=== PATIENT | male | born 1960 | race Caucasian/White ===

== ENCOUNTER → 2016-09-22 | Outpatient (CLI) | payer BC ==
[~2016-09-22] MED LIST: HMLI SC; INSDGI SC; LSN20 PO; SIMV40TA2 PO
== END | disposition home or self-care (01) ==
LOC: C.CPL 09:41
PROVIDERS: ATTEND Orthopaedic Surgery
DX: M77.22 Periarthritis, left wrist (principal)

== ENCOUNTER → 2016-10-07 | Outpatient (CLI) | payer BC | END | disposition home or self-care (01) | LOC: C.PATHSPEC 12:08 | PROVIDERS: ATTEND Orthopaedic Surgery | DX: M11.232 Other chondrocalcinosis, left wrist (principal) ==

== ENCOUNTER → 2017-10-05 | Outpatient (CLI) | payer OTHER ==
--- NOTE | 2017-10-05 08:24 | DIAGNOSTIC IMAGING REPORT ---
L HAND MIN 3 VIEWS ROUTINE HISTORY: 56 years-old Male INFLAMMATORY ARTHROPATHY status post prior scaphoid resection. COMPARISON: Left wrist radiographs 12/25/2015 TECHNIQUE: 4 views of the left hand FINDINGS: The bones are mildly demineralized. Moderate radiocarpal joint space narrowing. Moderate degenerative changes are also seen involving the first carpometacarpal joint. Mild to moderate joint space narrowing is seen throughout the interphalangeal joints. There are subtle marginal and periarticular erosions about the digits involving predominantly the PIP joints and to a lesser degree within the DIP and metacarpophalangeal joints. No significant focal soft tissue swelling. Peripheral vascular disease. Postoperative changes compatible with prior scaphoid resection with carpal fusion. Multiple cannulated screws are seen within the proximal and distal carpal rows with sparing of the trapezoid and trapezium. No acute fracture or subluxation. IMPRESSION: 1. Postoperative changes compatible with prior scaphoid resection with carpal fusion. 2. Mild bone demineralization is noted with subtle marginal and periarticular erosions predominantly involving the PIP joints suggesting inflammatory arthropathy. 3. No acute fracture or subluxation. 4. Peripheral vascular disease. The above report was generated using voice recognition software. It may contain grammatical, syntax or spelling errors. Electronically signed by: Jorge Up M.D. 10/05/2017 8:22 AM Dictated Date/Time: 10/05/2017 8:18 AM
== END | disposition home or self-care (01) ==
LOC: C.RAD 08:01
DX: M06.4 Inflammatory polyarthropathy (principal); I73.9 Peripheral vascular disease, unspecified

== ENCOUNTER → 2017-12-06 | Day surgery (SDC) | payer BC, OTHER ==
[2017-11-24 15:25] VITALS: Ht 175.3 cm; Wt 103.6 kg
[~2017-12-06] VITALS: Ht 175.3 cm; Wt 103.6 kg
[~2017-12-06] MED LIST changes: +ASPCH81X PO; +ATOR-24 PO; +FOLI1TAB8 PO; -HMLI SC; -INSDGI SC; +INSPMPHMLG; +LIDOCAINE HCL 2% 2 ML VIAL (20MG/ML) ONE; +LISI20TA3 PO; -LSN20 PO; +METH2.5T PO; +MIDAZOLAM HCL 1 MG/ML 2ML VIAL ONE; +ONDANSETRON INJ 2 MG/ML 2 ML VIAL ONE; +PROPOFOL IV EMULSION 10 MG/ML 20 ML VIAL IV ONE; -SIMV40TA2 PO; +SODIUM CHLORIDE 0.9% 500ML 500 ML IV ONE
--- NOTE | 2017-12-06 10:04 | Endo History and Physical ---
History & Physical Date of Service: Dec 06, 2017. Chief Complaint: history of polyps Referring Physician: Dr. Ryan Donahue History of Present Illness 56 yo CM who presents for colonoscopy secondary to history of polyps. Past Medical History Diabetes, Hypertension Past Surgical History Hx Cardiac Surgery: No Hx Internal Defibrillator: No Hx Pacemaker: No Hx Abdominal Surgery: No Hx of Implantable Prosthesis: No Hx Post-Op Nausea and Vomiting: No Hx Cancer Surgery: No Hx Thoracic Surgery: No Hx Orthopedic: Yes (LEFT WRIST FUSION) Hx Urinary Tract Surgery: Yes (LITHOTRIPSY) Family History Colon CA, Polyp Social History Smoking Status: Never Smoker Hx Substance Use: No Hx Alcohol Use: No Allergies Coded Allergies: No Known Allergies (Verified , 12/06/17) Current Medications Reported Home Medications Medications Dose Route/Sig Max Daily Dose Days Date Category Dose Instructions Folvite (Folic Acid) 1 Mg Tab 1 Mg PO QPM 11/24/17 Reported Methotrexate 2.5 Mg Tab 6 Tab PO WK 11/24/17 Reported TAKES ON MONDAYS Aspirin Chewable (Aspirin) 81 Mg Chew 81 Mg PO QPM 11/24/17 Reported Lipitor (Atorvastatin Calcium) 40 Mg Tab 40 Mg PO QPM 11/24/17 Reported Prinivil (Lisinopril) 20 Mg Tab 20 Mg PO QPM 11/24/17 Reported Insulin Humalog Pump (Insulin Human Lispro) Pump 1 Ea N/A UD 11/24/17 Reported Vital Signs Weight (Kilograms): 103.64 Height (Feet): 5 Height (Inches): 9 Date Time Temp Pulse Resp B/P (MAP) Pulse Ox O2 Delivery O2 Flow Rate FiO2 12/06/17 09:29 36.4 87 20 154/72 (99) 97 Room Air Physical Exam General Appearance: WD/WN, no apparent distress Respiratory/Chest: Auscultation: breath sounds normal Cardiovascular: Heart Auscultation: RRR Abdomen: Bowel Sounds: normal Inspection & Palpation: soft, non-distended, no tenderness, guarding & rebound Assessment and Plan Assessment: 56 yo CM who presents for colonoscopy secondary to history of polyps. Plan: Proceed with colonoscopy.
--- NOTE | 2017-12-06 10:52 | Anesthesiology Progress Note ---
Anesthesia Post Op Note Date & Time Dec 06, 2017 at 10:52 Vital Signs Pain Intensity: 0 Vital Signs Past 12 Hours Date Time Temp Pulse Resp B/P (MAP) Pulse Ox O2 Delivery O2 Flow Rate FiO2 12/06/17 10:46 36.4 83 16 117/47 (70) 96 Room Air 12/06/17 09:29 36.4 87 20 154/72 (99) 97 Room Air Notes Mental Status: alert / awake / arousable, participated in evaluation Pt Amnestic to Procedure: Yes Nausea / Vomiting: adequately controlled Pain: adequately controlled Airway Patency, RR, SpO2: stable & adequate BP & HR: stable & adequate Hydration State: stable & adequate Anesthetic Complications: no major complications apparent
--- NOTE | 2017-12-06 10:56 | GI REPORT ---
Procedure Date: 12/06/2017 10:07 AM Procedure: Colonoscopy Indications: High risk colon cancer surveillance: Personal history of colonic polyps Medicines: Monitored Anesthesia Care Complications: No immediate complications. Estimated Blood Loss: Estimated blood loss: none. Procedure: Pre-Anesthesia Assessment: - Prior to the procedure, a History and Physical was performed, and patient medications and allergies were reviewed. The patient's tolerance of previous anesthesia was also reviewed. The risks and benefits of the procedure and the sedation options and risks were discussed with the patient. All questions were answered, and informed consent was obtained. Prior Anticoagulants: The patient has taken aspirin, last dose was 2 days prior to procedure. ASA Grade Assessment: II - A patient with mild systemic disease. After reviewing the risks and benefits, the patient was deemed in satisfactory condition to undergo the procedure. After I obtained informed consent, the scope was passed under direct vision. Throughout the procedure, the patient's blood pressure, pulse, and oxygen saturations were monitored continuously. The scope was introduced through the anus and advanced to the terminal ileum. The colonoscopy was performed without difficulty. The patient tolerated the procedure well. The quality of the bowel preparation was good. The terminal ileum, ileocecal valve, appendiceal orifice, and rectum were photographed. Findings: The perianal and digital rectal examinations were normal. A 6 mm polyp was found in the ascending colon. The polyp was flat. The polyp was removed with a hot snare. Resection and retrieval were complete. Multiple small-mouthed diverticula were found in the sigmoid colon. Non-bleeding internal hemorrhoids were found during retroflexion. The hemorrhoids were small. Impression: - One 6 mm polyp in the ascending colon, removed with a hot snare. Resected and retrieved. - Diverticulosis in the sigmoid colon. - Non-bleeding internal hemorrhoids. Recommendation: - Resume previous diet. - Continue present medications. - Await pathology results. - Repeat colonoscopy for surveillance based on pathology results. - Return to primary care physician as previously scheduled. Lauri Martinez, DO 12/06/2017 10:56:10 AM This report has been signed electronically. Note Initiated On: 12/06/2017 10:07 AM I attest to the content of the Intraoperative Record and orders documented therein, exceptions below
--- NOTE | 2017-12-06 10:57 | Discharge Instructions ---
Endoscopy Patient Instructions Date / Procedure(s) Performed Dec 06, 2017. Colonoscopy Allergy Information Coded Allergies: No Known Allergies (Verified , 12/06/17) Discharge Date / Findings Dec 06, 2017. Colon polyp Diverticulosis Internal hemorrhoids Medication Instructions Stopped Medication(s): stopped all meds on Monday including ASA OK to resume all medications today as prescribed Reported Home Medications Medications Dose Route/Sig Max Daily Dose Days Date Category Dose Instructions Folvite (Folic Acid) 1 Mg Tab 1 Mg PO QPM 11/24/17 Reported Methotrexate 2.5 Mg Tab 6 Tab PO WK 11/24/17 Reported TAKES ON MONDAYS Aspirin Chewable (Aspirin) 81 Mg Chew 81 Mg PO QPM 11/24/17 Reported Lipitor (Atorvastatin Calcium) 40 Mg Tab 40 Mg PO QPM 11/24/17 Reported Prinivil (Lisinopril) 20 Mg Tab 20 Mg PO QPM 11/24/17 Reported Insulin Humalog Pump (Insulin Human Lispro) Pump 1 Ea N/A UD 11/24/17 Reported Provider Instructions Activity Restrictions - No exercising or heavy lifting for 24 hours. - Do not drink alcohol the day of the procedure. - Do not drive a car or operate machinery until the day after the procedure. - Do not make any important decisions or sign important papers in 24 hours after the procedure. Following Day: - Return to full activity which may include returning to work/school. Diet Start your diet with liquids and light foods (jello, soup, juice, toast). Then eat your usual diet if not nauseated. Treatment For Common After Affects For mild abdominal pain, bloating, or excessive gas: - Rest - Eat lightly - Lie on right side Follow-Up Information Follow-up with Dr. Ryan Donahue as scheduled Anesthesia Information What You Should Know You have had a procedure that required some medicine to reduce anxiety and discomfort. This treatment is called moderate sedation. After receiving the treatment, you may be sleepy, but you will be able to breathe on your own. The effects of the treatment may last for several hours. Follow these instructions along with Activity/Diet recommendations noted above: * Do NOT do anything where dizziness or clumsiness would be dangerous. * Rest quietly at home today, then you can be up and about tomorrow. * Have a responsible person stay with you the rest of today. * You may have had an I.V. today. If so, you may take the dressing off later today. Recommendations Call your doctor if: * Trouble breathing * Continuous vomiting for more than 24 hours * Temperature above 101 degrees * Severe abdominal pain or bloating * Pain not relieved by pain medicine ordered * There is increased drainage or redness from any incision * A large amount of rectal bleeding greater than 2-3 tablespoons. (If you had a polyp/s removed or have hemorrhoids, a small amount of blood - from the rectum is to be expected.) * You have any unanswered questions or concerns. IN THE EVENT OF A SERIOUS EMERGENCY, GO TO THE NEAREST EMERGENCY ROOM Your discharge instructions were prepared by provider Lauri Martinez. Patient Instructions Signature Page Cong Miller Patient (or Guardian) Signature/Date: I have read and understand the instructions given to me by my caregivers. Caregiver/RN/Doctor Signature/Date: The above-named patient and/or guardian has received patient instructions on this date. + Original Patient Signature Page (only) stays with chart. Please make copy for patient.
[2017-12-06 11:18] VITALS: BP 104/64; PULSE 78; O2SAT 95
== END | disposition home or self-care (01) ==
LOC: C.GI 08:45
PROVIDERS: ATTEND Internal Medicine
DX: Z12.11 Encounter for screening for malignant neoplasm of colon (principal); D12.2 Benign neoplasm of ascending colon; K57.30 Diverticulosis of large intestine without perforation or abscess without bleeding; K64.8 Other hemorrhoids; Z86.010 Personal history of colon polyps; I10 Essential (primary) hypertension; E11.9 Type 2 diabetes mellitus without complications; Z96.41 Presence of insulin pump (external) (internal)